=== PATIENT | male | born 2000 | race Caucasian/White ===

== ENCOUNTER 2020-04-18 01:54 | Emergency (ER) | payer SELFPAY ==
[2020-04-18 03:35] LABS: Absolute Lymphocytes (CBC) 1.3 K/uL (0.7-4.9); Basophils % 0.6 % (0-1.3); Hematocrit 42.3 % (39.6-49.0); Lymphocytes % 11.3 % (15.3-44.8); MPV 8.7 fL (7.6-11.3); RBC Red Blood Cell Count 4.88 M/uL (4.33-5.43)
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
[2020-04-18 03:40] LABS: BUN Blood Urea Nitrogen 12 mg/dL (7-18); Bicarbonate 31 mmol/L (21-32); Glucose Level 90 mg/dL (74-106); Potassium 3.5 mmol/L (3.5-5.1); Sodium Level 144 mmol/L (136-145)
[2020-04-18] MEDS ORDERED: NA CHLORIDE 0.9% 1,000 ML ONE (03:42)
[2020-04-18 04:26] VITALS: TEMP 97.7
[2020-04-18 04:36] VITALS: BP 114/67; O2SAT 100
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
== END 2020-04-18 04:19 | disposition short-term general hospital (02) ==
LOC: ER 01:54
DX: S09.90XA Unspecified injury of head, initial encounter (principal); S27.322A Contusion of lung, bilateral, initial encounter; S27.0XXA Traumatic pneumothorax, initial encounter; V48.5XXA Car driver injured in noncollision transport accident in traffic accident, initial encounter
CPT/HCPCS: 36415; 70450; 71250; 72125; 80048; 85025; 99285; G0390; J7030